=== PATIENT | female | born 1975 | race Caucasian/White ===

== ENCOUNTER 2016-05-20 09:14 | Day surgery (SDC) | END 2016-05-20 16:00 | disposition home or self-care (01) | DX: K80.10 Calculus of gallbladder with chronic cholecystitis without obstruction (principal) | CPT/HCPCS: 47562; 80048; 84703; 85025; 85610; 85730; 88304; J0330; J0690; J1100; J1170; J1200; J2250; J2405; J2710; J3010; Z7512; Z7610 ==

== ENCOUNTER 2016-05-30 17:49 | Emergency (ER) | payer OTHER ==
[~2016-05-30] VITALS: Ht 160 cm; Wt 66.0 kg
[~2016-05-30 17:49] MED LIST: OMEP40CA6 PO
[2016-05-30 18:43] VITALS: Ht 160 cm; Wt 66.0 kg
[2016-05-30] MEDS ORDERED: morphine 4 MG/ML VIAL IV STA (18:52)
[2016-05-30 19:42] LABS: URINE BLOOD (Dip) POC 1+ (NEGATIVE)
[2016-05-30 20:10] LABS: BASOPHILS % 0.4 % (0.0-2.0); EOSINOPHILS # 0.4 10^3/ul (0.0-0.5); EOSINOPHILS % 3.4 % (0.0-7.0); HEMATOCRIT 42.6 % (37.0-47.0); HEMOGLOBIN 14.5 g/dl (12.0-16.0); LYMPHOCYTES # 2.2 10^3/ul (0.8-2.9); LYMPHOCYTES % 19.3 % (15.0-51.0); MEAN CORPUSCULAR HEMOGLOBIN 30.1 pg (29.0-33.0); MEAN CORPUSCULAR VOLUME 88.5 fl (82.0-101.0); MEAN PLATELET VOLUME 8.8 fl (7.4-10.4); MONOCYTE # 0.8 10^3/ul (0.3-0.9); MONOCYTES % 6.7 % (0.0-11.0); NEUTROPHIL # 8.2 10^3/ul (1.6-7.5); NEUTROPHILS % 70.2 % (39.0-77.0); PLATELET COUNT 323 10^3/UL (140-440); RED BLOOD COUNT 4.81 10^6/ul (4.20-5.40); RED CELL DISTRIBUTION WIDTH 12.5 % (11.5-14.5); UNCORRECTED WBC 11.6 10^3/ul (4.8-10.8); WHITE BLOOD COUNT 11.6 10^3/ul (4.8-10.8)
[2016-05-30 20:14] LABS: ADD UMIC YES; URINE BILIRUBIN (Dip) NEGATIVE (NEGATIVE); URINE BLOOD (Dip) 1+ (NEGATIVE); URINE COLOR LT. YELLOW (YELLOW); URINE GLUCOSE (Dip) NEGATIVE (NEGATIVE); URINE KETONES (Dip) NEGATIVE (NEGATIVE); URINE LEUKOCYTE ESTERASE (Dip) NEGATIVE (NEGATIVE); URINE NITRITE (Dip) NEGATIVE (NEGATIVE); URINE TOTAL PROTEIN (Dip) NEGATIVE (NEGATIVE); URINE UROBILINOGEN (Dip) 0.2 E.U./dL (0.1-1.0)
[2016-05-30 20:18] LABS: ALBUMIN 4.9 g/dl (3.3-4.9); CONDITION 1
[2016-05-30 20:19] LABS: POTASSIUM 4.1 mmol/L (3.5-5.1)
[2016-05-30 20:21] LABS: ALBUMIN/GLOBULIN RATIO 1.36; BILIRUBIN,INDIRECT 0.1 mg/dl (0-1.1); BILIRUBIN,TOTAL 0.1 mg/dl (0.2-1.3); CREATININE 0.59 mg/dl (0.44-1.00); TOTAL PROTEIN 8.5 g/dl (6.1-8.1)
[2016-05-30 20:22] LABS: CALCIUM 9.6 mg/dl (8.4-10.2); SQUAMOUS EPITHELIAL CELL,UR MODERATE
[2016-05-30] MEDS ORDERED: SOD CHLORIDE 0.9% 100 ML ONE (20:59)
[2016-05-30] MEDS ORDERED: IOHEXOL 300MG/ML 150 ML BTL ONE (20:59)
--- NOTE | 2016-05-30 21:33 | RADRPT ---
PROCEDURE: CT of the abdomen and pelvis CLINICAL INDICATION: Abdominal pain TECHNIQUE: The study was performed utilizing a [employer] 64-slice multidetector CT scanner. Dir ect spiral axial sections were obtained through the abdomen and pelvis with intravenous contrast. Af ter administration of 90 cc of Isovue -300, postcontrast images were obtained. Coronal and sagittal reformatted images were performed. The CTDI vol is 7.26 mGy and the DLP is 369.99 mGy-cm. The imag es were reviewed on a PACS workstation. COMPARISON: No prior studies are available for comparison. FINDINGS: CT abdomen: The lung bases are clear. The heart is not enlarged. No pleural or pericardial effusi on is seen. The liver is normal in size and contour. No focal liver lesions or intrahepatic biliary dilatation is seen. The gallbladder has been removed. Inflammatory changes in the gallbladder fossa is seen. Skin haider are seen in the anterior abdominal wall. The spleen, pancreas, and adrenal glands are unremarkable in appearance. The kidneys are normal size and contour enhance normally. No evidence o f hydronephrosis or nephrolithiasis is seen. The stomach is unremarkable. The small and large bowel are unremarkable in course and caliber. A n ormal appendix is identified. No enlarged lymph nodes or fluid collections are seen. The aorta is n ormal in caliber . CT pelvis: No pelvic mass, adenopathy, or focal fluid collection is seen. There is a small amount of free fluid. The urinary bladder is normal. A small right adnexal cystic structure is seen with p eripheral enhancement and measures approximately with 1.3 cm in maximal diameter. The remain pelvic organs are unremarkable. No osseous lesions are seen. IMPRESSION: 1. Status post cholecystectomy with acute postoperative changes as described above. 2. Small right adnexal cystic structure which may represent a corpus luteum cyst with a small amoun t of free fluid in the pelvis, the findings of which may be physiologic. Further evaluation with pel juana ultrasound may be of value. RPTAT: HPNM Physician Jameel Date Time Electronically viewed and signed by Physician Jameel on 05/30/2016 21:33 /
--- NOTE | 2016-05-30 22:33 | ERD ---
ER Documentation Chief Complaint Date/Time DATE: 05/30/16 TIME: 22:30 Chief Complaint RIGHT upper quadrant abdominal pain, CHO[place] 10 DAYS AGO. HPI 41-year-old female with a past medical history of status post cholecystectomy 10 days ago presents the ED complaining of a sudden onset of right upper quadrant pain. Patient is unable to describe the pain. Reports that she had a normal bowel movement today. States that she passed gas after the surgery. Denies any nausea, vomiting, diarrhea, chest pain, shortness of breath, flank pain, dysuria, urgency, frequency, hematuria. States that her last menses was on May 10, 2016. Denies any vaginal bleeding, vaginal discharge. ROS All systems reviewed and are negative except as per history of present illness. Medications Home Meds Reported Medications Omeprazole* (Omeprazole*) 40 Mg Capsule.dr, 40 MG PO DAILY, #30 CAP 05/20/16 Allergies Allergies: Coded Allergies: No Known Allergy (Unverified , 05/20/16) PMhx/Soc History of Surgery: Yes (RECENT GALLBLADDER SX 2016) Anesthesia Reaction: No Hx Neurological Disorder: No Hx Respiratory Disorders: No Hx Cardiac Disorders: No Hx Psychiatric Problems: No Hx Miscellaneous Medical Probl: No Hx Alcohol Use: No Hx Substance Use: No Hx Tobacco Use: No Smoking Status: Never smoker Physical Exam Vitals Vital Signs Date Time Temp Pulse Resp B/P Pulse Ox O2 Delivery O2 Flow Rate FiO2 05/30/16 18:43 98.4 80 18 129/69 100 Physical Exam Const: [id number], well-nourished. In no acute distress. Head: Atraumatic, normocephalic Eyes: Normal Conjunctiva without injection. No purulent discharge. ENT: Normal external ear, nose. Moist oropharynx without tonsillar exudates. Non -erythematous pharynx. Uvula midline. No drooling. No trismus. Neck: No cervical midline tenderness. Full range of motion. No meningismus. No cervical lymphadenopathy. No JVD. Resp: Clear to auscultation bilaterally. No wheezing, rhonchi, rales, or crackles. No accessory muscle use. No retractions. Cardio: Regular rate and rhythm. No murmurs, rubs or gallops. Abd: Soft, right upper quadrant tenderness, non distended. Normal bowel sounds. No palpable masses. No rebound tenderness. No guarding. Negative McBurney' s point. Negative psoas sign. Negative obturator sign. Skin: No petechiae or rashes Back: No midline tenderness. No CVA tenderness. Ext: No cyanosis, or edema. Neur: Awake and alert. Normal gait. Normal coordination. Psych: Normal Mood and Affect Result Diagram: 05/30/16193505/30/161935 Results 24 hrs Laboratory Tests Test 05/30/16 19:36 05/30/16 19:43 Alanine Aminotransferase (ALT/SGPT) 50IU/L Albumin 4.9g/dl Albumin/Globulin Ratio 1.36 Alkaline Phosphatase 82IU/L Anion Gap 21 Aspartate Amino Transf (AST/SGOT) 31IU/L Basophils # 0.010^3/ul Basophils % 0.4% Blood Urea Nitrogen 10mg/dl Calcium Level 9.6mg/dl Carbon Dioxide Level 25mmol/L Chloride Level 101mmol/L Creatinine 0.59mg/dl Direct Bilirubin 0.00mg/dl Eosinophils # 0.410^3/ul Eosinophils % 3.4% Globulin 3.60g/dl Glucose Level 87mg/dl Hematocrit 42.6% Hemoglobin 14.5g/dl Indirect Bilirubin 0.1mg/dl Lipase 107U/L Lymphocytes # 2.210^3/ul Lymphocytes % 19.3% Mean Corpuscular Hemoglobin 30.1pg Mean Corpuscular Hemoglobin Concent 34.0g/dl Mean Corpuscular Volume 88.5fl Mean Platelet Volume 8.8fl Monocytes # 0.810^3/ul Monocytes % 6.7% Neutrophils # 8.210^3/ul Neutrophils % 70.2% Nucleated Red Blood Cells # 0.010^3/ul Nucleated Red Blood Cells % 0.0/100WBC Platelet Count 19651^3/UL Potassium Level 4.1mmol/L Red Blood Count 4.8110^6/ul Red Cell Distribution Width 12.5% Sodium Level 143mmol/L Total Bilirubin 0.1mg/dl Total Protein 8.5g/dl Urine Bilirubin NEGATIVE Urine Clarity CLEAR Urine Color LT. YELLOW Urine Glucose NEGATIVE% Urine Hemoglobin 1+ Urine Ketones NEGATIVE Urine Leukocyte Esterase NEGATIVE Urine Microscopic RBC 2-5/HPF Urine Microscopic WBC NONE SEEN/HPF Urine Nitrite NEGATIVE Urine Specific [place] 1.010 Urine Squamous Epithelial Cells MODERATE Urine Total Protein NEGATIVE Urine Urobilinogen 0.2 E.U./dL Urine pH 6.0 White Blood Count 11.610^3/ul Bedside Urine Blood 1+ Bedside Urine Glucose (UA) Negative Bedside Urine Ketones (LAB) Negative Bedside Urine Leukocyte Esterase (L Negative Bedside Urine Nitrite (LAB) Negative Bedside Urine Protein (LAB) Negative Bedside Urine pH (LAB) 6.0 Current Medications Medications (Trade) Dose Ordered Sig/Samra Route PRN Reason Start Time Stop Time Status Last Admin Dose Admin Morphine Sulfate (morphine) 4 mg ONCE STAT IV 05/30/16 18:52 05/30/16 18:54 DC 05/30/16 19:32 IV Flush 10 ml 10 ml STK-MED ONCE .ROUTE 05/30/16 20:59 05/30/16 21:00 DC 05/30/16 21:16 Sodium Chloride (NS) 100 ml @ ud STK-MED ONCE .ROUTE 05/30/16 20:59 05/30/16 21:00 DC 05/30/16 21:16 Iohexol (Omnipaque 300mg/ ml) 150 ml STK-MED ONCE .ROUTE 05/30/16 20:59 05/30/16 21:00 DC 05/30/16 21:16 Procedures/MDM 41-year-old female with a past medical history of status post cholecystectomy presents to the ED complaining of a sudden onset of right upper quadrant abdominal pain. Patient is afebrile and nontoxic-appearing. Patient has normal vital signs. This case was discussed with my supervising physician, Dr. Norman who recommended the following workup. Patient was further worked up with CBC, CMP, lipase, UA, urine , CT of the abdomen and pelvis with contrast. Patient's pain and symptoms have improved after treatment with 4 mg IV morphine. CBC: No leukocytosis. No e/o of systemic infection. No e/o anemia. CMP: No e/o severe acidosis, alkalosis, renal failure, diabetic ketoacidosis, liver disease Lipase within normal limits. Urine: No leukocyte esterase, no nitrites, no hematuria. Urine : Negative PROCEDURE: CT of the abdomen and pelvis CLINICAL INDICATION: Abdominal pain TECHNIQUE: The study was performed utilizing a [employer] 64-slice multidetector CT scanner. Direct spiral axial sections were obtained through the abdomen and pelvis with intravenous contrast. After administration of 90 cc of Isovue -300, postcontrast images were obtained. Coronal and sagittal reformatted images were performed. The CTDI vol is 7.26 mGy and the DLP is 369.99 mGy-cm. The images were reviewed on a PACS workstation. COMPARISON: No prior studies are available for comparison. FINDINGS: CT abdomen: The lung bases are clear. The heart is not enlarged. No pleural or pericardial effusion is seen. The liver is normal in size and contour. No focal liver lesions or intrahepatic biliary dilatation is seen. The gallbladder has been removed. Inflammatory changes in the gallbladder fossa is seen. Skin haider are seen in the anterior abdominal wall. The spleen, pancreas, and adrenal glands are unremarkable in appearance. The kidneys are normal size and contour enhance normally. No evidence of hydronephrosis or nephrolithiasis is seen. The stomach is unremarkable. The small and large bowel are unremarkable in course and caliber. A normal appendix is identified. No enlarged lymph nodes or fluid collections are seen. The aorta is normal in caliber . CT pelvis: No pelvic mass, adenopathy, or focal fluid collection is seen. There is a small amount of free fluid. The urinary bladder is normal. A small right adnexal cystic structure is seen with peripheral enhancement and measures approximately with 1.3 cm in maximal diameter. The remain pelvic organs are unremarkable. No osseous lesions are seen. IMPRESSION: 1. Status post cholecystectomy with acute postoperative changes as described above. 2. Small right adnexal cystic structure which may represent a corpus luteum cyst with a small amount of free fluid in the pelvis, the findings of which may be physiologic. Further evaluation with pelvic ultrasound may be of value. No evidence of abscess, common bile duct leak, retained gallstones, choledocholithiasis, pancreatitis, gallstone pancreatitis, postoperative complications, pulmonary embolism, DVT, pneumonia, UTI, pyelonephritis or other emergent conditions. A differential diagnosis considered includes but is not limited to gastritis, GERD, peptic ulcer disease, cholecystitis, choledocholithiasis, cholangitis, pancreatitis, appendicitis, bowel obstruction , ileus, volvulus, nephrolithiasis, pyelonephritis, hepatitis, perforated viscus , diverticulitis, abdominal hernia, acute abdomen, mesenteric ischemia or other emergent conditions. Discharge medications: Take [place] as needed as prescribed by Dr. Issa Follow up with primary care physician in 1-2 days for referral to signaling design engineer. Instructed patient to return to the ED sooner for any worsening symptoms. Patient's questions were answered. Patient understood and agreed with discharge plan. Patient discharged stable. Departure Diagnosis: Primary Impression: Post-op pain Condition: Stable Patient Instructions: Cholecystectomy, Post Op Wound Check, Pain Referrals: Kimberley ISSA [facility] YOU HAVE RECEIVED A MEDICAL SCREENING EXAM AND THE RESULTS INDICATE THAT YOU DO NOT HAVE A CONDITION THAT REQUIRES URGENT TREATMENT IN THE EMERGENCY DEPARTMENT. FURTHER EVALUATION AND TREATMENT OF YOUR CONDITION CAN WAIT UNTIL YOU ARE SEEN IN YOUR DOCTORS OFFICE WITHIN THE NEXT 1-2 DAYS. IT IS YOUR RESPONSIBILITY TO MAKE AN APPOINTMENT FOR FOLOW-UP CARE. IF YOU HAVE A PRIMARY DOCTOR --you should call your primary doctor and schedule an appointment IF YOU DO NOT HAVE A PRIMARY DOCTOR YOU CAN CALL OUR PHYSICIAN REFERRAL HOTLINE AT IF YOU CAN NOT AFFORD TO SEE A PHYSICIAN YOU CAN CHOSE FROM THE FOLLOWING [facility] [address] [facility] On-Line [facility]. [facility] [address] [facility] On-Line [facility]. [facility] [address] [facility] [facility] [address] [facility] [address] [facility]. [facility]. [address] [facility]. [facility] YOU HAVE RECEIVED A MEDICAL SCREENING EXAM AND THE RESULTS INDICATE THAT YOU DO NOT HAVE A CONDITION THAT REQUIRES URGENT TREATMENT IN THE EMERGENCY DEPARTMENT. FURTHER EVALUATION AND TREATMENT OF YOUR CONDITION CAN WAIT UNTIL YOU ARE SEEN IN YOUR DOCTORS OFFICE WITHIN THE NEXT 1-2 DAYS. IT IS YOUR RESPONSIBILITY TO MAKE AN APPOINTMENT FOR FOLOW-UP CARE. IF YOU HAVE A PRIMARY DOCTOR --you should call your primary doctor and schedule and appointment IF YOU DO NOT HAVE A PRIMARY DOCTOR YOU CAN CALL OUR PHYSICIAN REFERRAL HOTLINE AT . IF YOU CAN NOT AFFORD TO SEE A PHYSICIAN YOU CAN CHOSE FROM THE FOLLOWING [facility] INSTITUTIONS: [facility] [address] [place] [address] [facility] [address] [place] [address] [facility] [address] [place] [address] [facility] Additional Instructions: FOLLOW UP WITH YOUR GENERAL [place] TOMORROW.Return to this facility if you are not improving as expected. RONALD MONTALVO PA-C May 30, 2016 22:33
== END 2016-05-30 22:30 | disposition home or self-care (01) ==
LOC: FTE 17:49
DX: R10.11 Right upper quadrant pain (principal); G89.18 Other acute postprocedural pain
CPT/HCPCS: 74177; 80053; 81001; 83690; 85025; J2270; Q9967; Z7610; 36415; 81003; 96374